=== PATIENT | female | born 1945 | race American Indian/Alaskan Native ===

== ENCOUNTER 2018-02-06 06:29 | Day surgery (SDC) | payer MEDICARE ==
[2018-02-06] MEDS ORDERED: NACL 0.9% 500 ML 500 ML IV SCH (07:00)
[2018-02-06 07:23] LABS: Basophils # (Auto) 0.1 K/mm3 (0.0-0.1); Basophils % (Auto) 0.9 % (0.0-1.8); Eosinophils # (Auto) 0.2 K/mm3 (0.0-0.4); Eosinophils % (Auto) 3.6 % (0.0-4.3); Hematocrit 40.9 % (30.3-42.9); Hemoglobin 13.3 gm/dl (10.1-14.3); Lymphocytes # (Auto) 2.7 K/mm3 (1.2-5.4); Lymphocytes % (Auto) 46.6 % (13.4-35.0); Mean Corpuscular HGB Conc 33 % (30-34); Mean Corpuscular Hemoglobin 28 pg (28-32); Mean Corpuscular Volume 86 fl (79-97); Monocytes # (Auto) 0.6 K/mm3 (0.0-0.8); Platelet Count 250 K/mm3 (140-440); Red Blood Count 4.76 M/mm3 (3.65-5.03); Red Cell Distribution Width 14.5 % (13.2-15.2)
[2018-02-06 07:35] LABS: INR 0.86 (0.87-1.13)
[2018-02-06 07:37] LABS: Calcium 10.2 mg/dL (8.4-10.2)
[2018-02-06] MEDS ORDERED: HEPARIN 10,000 UNITS/10 ML ONE (08:45)
[2018-02-06] MEDS ORDERED: HEPARIN/NS 5000 UNIT/500ML(CATH LAB) 1,000 ML IR ONE (08:45)
[2018-02-06] MEDS ORDERED: NITROGLYCERIN SYRINGE 3 ML ONE (08:45)
[2018-02-06] MEDS ORDERED: XYLOCAINE 2% INFILTRATI ONE (08:45)
[2018-02-06] MEDS ORDERED: CALAN ONE (08:45)
[2018-02-06] MEDS ORDERED: VERSED ONE (08:46)
[2018-02-06] MEDS ORDERED: SUBLIMAZE ONE (08:46)
--- NOTE | 2018-02-06 09:44 | Short Stay Summary ---
Short Stay Documentation Date of service: 02/06/18 - History H&P: obtained from office - Allergies and Medications Current Medications: Allergies No Known Allergies Allergy (Verified 02/06/18 06:40) Home Medications Medication Instructions Recorded Confirmed Last Taken Type Ascorbic Acid [Vitamin C] 1,000 mg PO QDAY 02/06/18 02/06/18 02/05/18 History Aspirin EC [Aspirin Enteric Coated 81 mg PO QDAY 02/06/18 02/06/18 02/06/18 05: 00 History TAB] AtorvaSTATin [Lipitor] 40 mg PO QHS 02/06/18 02/06/18 02/06/18 History Cholecalciferol (Vitamin D3) 1,000 unit PO QDAY 02/06/18 02/06/18 02/05/18 History [Vitamin D3] Losartan/Hydrochlorothiazide 1 tab PO QDAY 02/06/18 02/06/18 02/06/18 05:00 History [Losartan-Hctz 50-12.5 mg Tab] Metoprolol Tartrate 50 mg PO BID 02/06/18 02/06/18 02/06/18 05:00 History Multivit-Min/FA/Lycopen/Lutein 1 tab PO QDAY 02/06/18 02/06/18 02/05/18 History [Centrum Silver Tablet] Naproxen Sodium [Aleve] 2 mosm PO PRN PRN 02/06/18 02/06/18 02/03/18 History [place]-3 Fatty Acids [[place]-3] 100 mg PO QDAY 02/06/18 02/06/18 02/05/18 History Ranitidine HCl [Acid Production Repairer] 150 mg PO HS 02/06/18 02/06/18 02/05/18 History amLODIPine [Norvasc] 10 mg PO DAILY 02/06/18 02/06/18 02/06/18 05:00 History Active Medications Sodium Chloride (Nacl 0.9% 500 Ml) 500 mls @ 50 mls/hr IV DIRECT RIZWAN Stop: 02/06/18 16:59 Last Admin: 02/06/18 07:58 Dose: 50 mls/hr - Brief post op/procedure progress note Date of procedure: 02/06/18 Pre-op diagnosis: abnl stress Post-op diagnosis: same Procedure: see report Anesthesia: local Estimated blood loss: none Pathology: none - Disposition Condition at discharge: Good Disposition: [id number] TO HOME OR SELFCARE - Discharge Diagnoses (1) CAD (coronary artery disease) Status: Acute Qualifiers: Coronary Disease-Associated Artery/Lesion type: hoopa artery Associated angina: with stable angina (2) Hypertension Status: Chronic Qualifiers: Hypertension type: essential hypertension Qualified Code(s): I10 - Essential (primary) hypertension (3) Hyperlipemia, mixed Status: Chronic (4) Abnormal cardiovascular stress test Status: Acute (5) Obesity (BMI 30-39.9) Status: Chronic Short Stay Discharge Plan Activity: advance as tolerated Diet: low fat, low cholesterol, low salt Wound: keep clean and dry Follow up with: PORFIRIO KAUR MD [Primary Care Provider] - 7 Days
--- NOTE | 2018-02-06 11:48 | Cardiac Catherization Report ---
LEFT HEART CATHETERIZATION REFERRING PHYSICIAN: Dr. Novoa's office. CLINICAL INFORMATION: A 72-year-old -[place] female with obesity, hypertension, and hyperlipidemia, who has been having fatigue with exertion, Wood classification 2. Had abnormal stress test, intermittent ischemia noted, is here for left heart catheterization. Moderate sedation was performed using 0.5 mg of Versed and 25 mcg of fentanyl. Total sedation time was 20 minutes, starting time 9:06 a.m. and fishing at 9:26 a.m. PROCEDURE DETAILS: Procedure was performed via the right radial artery, sterile technique, local anesthesia, 6-Irish radial sheath inserted. PROCEDURAL FINDINGS: Calcification of the left coronary artery system. Left main is a large caliber vessel that is patent with mild luminal irregularities and bifurcates into a large LAD that is patent from proximal to mid. There is moderate tortuosity and has a focal 80 to 90% lesion noted. Rest LAD is patent. Diagonal 1 is a wtrqn-pq-bawcyz caliber vessel, has a proximal 80 to 90% lesion. Circumflex and AV groove is a large caliber with moderate to severe tortuosity in the distal circumflex prior to OM3, there is a focal 80 to 90% lesion. Ramus is a small caliber vessel; has a long mid proximal 80 to 90% lesion and OM1, OM2 patent. RCA engaged with JR4 catheter, medium caliber vessel is dominant, proximal 90% mid at the crux 90%, goes into a akilu-lv-bvexwz caliber PDA and PLV that are patent. LV gram done in CZECH and HINTON view shows normal LV function, EF 55 to 60%. LVEDP 20 mmHg, LV is 164/28. Aortic is 164/77. No gradient across the aortic valve on pullback. 5-Irish catheters all taken on guidewire and a 6-Irish radial sheath was discontinued. Radial dressing applied. No hematoma, no bleeding. SUMMARY: Significant triple-vessel disease, left main patent, left anterior descending mid to distal focal 89%. Diagonal 80 to 90% proximal circumflex distally 80 to 90%, ramus 80 to 90%, proximal right coronary artery proximal and mid 90% with normal left ventricular function. In view of multivessel disease, the patient was referred for bypass surgery. Discussed in detail with the patient and patient's daughter. JOB# [id number] GARY/FELICITAS
[2018-02-06 12:05] VITALS: BP 138/57
== END 2018-02-06 12:30 | disposition home or self-care (01) ==
LOC: CATHLABREC 06:29
PROVIDERS: ATTEND Internal Medicine
DX: I25.10 Atherosclerotic heart disease of native coronary artery without angina pectoris (principal); I10 Essential (primary) hypertension; E78.2 Mixed hyperlipidemia; E66.9 Obesity, unspecified; Z79.82 Long term (current) use of aspirin; Z79.899 Other long term (current) drug therapy; Z79.01 Long term (current) use of anticoagulants
CPT/HCPCS: 36415; 80048; 85025; 85610; 85730; 93005; 93010; 93458; 99156; C1894; J1644; J2250; J3010; J7040; Q9967

== ENCOUNTER 2021-07-15 06:57 | Outpatient (CLI) | payer MEDICARE ==
--- NOTE | 2021-07-15 09:24 | XRay Report ---
CHEST 2 VIEWS INDICATION: HYPERCALCEMIA. COMPARISON: None FINDINGS: SUPPORT DEVICES: None. HEART: Within normal limits. LUNGS/PLEURA: Minimal streaky bibasilar airspace disease is present which may at least in part reflec t subsegmental atelectasis. Otherwise clear lungs. No pneumothorax. ADDITIONAL FINDINGS: None. IMPRESSION: 1. Pulmonary findings as above. Signer Name: Shelton Ibarra MD Signed: 07/15/2021 9:19 AM Workstation Name: [id number]
--- NOTE | 2021-07-15 11:32 | Nuclear Medicine Report ---
NUCLEAR MEDICINE BONE SCAN, WHOLE BODY INDICATION / CLINICAL INFORMATION: E83.52 HYPERCALCEMIA. History of left knee and lumbar arthritis TECHNIQUE: 26.1 mCi of Tc-99m MDP were injected IV. Images were obtained of the whole body. COMPARISON: Chest x-ray today FINDINGS: BONES: Moderate activity posteriorly in the mid cervical spine is indeterminate but likely arthritic in nature. Mild activity in the lower thoracic region on the right posteriorly also probably is arthr itic. Bilateral lumbar facet region activity at L4 and L5, more on the left, likely also is arthritic . JOINTS: Arthritic type changes are seen in both acromioclavicular joints, both knees, both ankles, an d both feet. SOFT TISSUES: No significant abnormality. KIDNEYS: No significant abnormality. ADDITIONAL FINDINGS: None. IMPRESSION: 1. Arthritic type changes are seen. Multiple areas of gyps-qq-ydavxgap activity in the cervical, thor acic, and lumbar spine probably are arthritic though technically are indeterminate. Signer Name: Epifanio Bell MD Signed: 07/15/2021 11:28 AM Workstation Name: [id number]
== END 2021-07-15 06:58 | disposition home or self-care (01) ==
LOC: NM 06:57
PROVIDERS: ATTEND Internal Medicine Nephrology
DX: M47.813 Spondylosis without myelopathy or radiculopathy, cervicothoracic region (principal); E83.52 Hypercalcemia; M19.09 Primary osteoarthritis, other specified site
CPT/HCPCS: 71046; 78306; A9503